=== PATIENT | female | born 1950 | race Caucasian/White ===

== ENCOUNTER 2016-11-02 05:22 | Inpatient (IN) | payer OTHER, MEDICARE ==
--- NOTE | 2016-10-31 15:52 | GHP ---
[f rep st] PREOP HISTORY AND PHYSICAL DATE OF ADMISSION: She will be an a.m. admission for surgery on Wednesday, November 02, 2016. PROBLEM LIST: 1. Right hip arthritis. 2. Insulin-dependent diabetes mellitus. HISTORY OF PRESENT ILLNESS: The patient is a 65-year-old woman admitted for a right total hip arthroplasty. She had been aware of progressive pain in her right hip for the past 6 years. She is having daily pain and night pain. Walking is painful. She has been limping. Her activities are limited. She has been using ibuprofen regularly. She has trouble putting on her shoes and socks on the right foot. She has tried extensive physical therapy. She has failed nonsurgical treatment and is admitted for a right total hip arthroplasty. PAST MEDICAL HISTORY: She had a spine fusion in 2005. She is treated for hypertension, insulin-dependent diabetes and depression. CURRENT MEDICATIONS: Amlodipine 10 mg per day. Atorvastatin 10 mg per day. Bupropion XL 150 mg per day. Fluoxetine 40 mg per day. Flonase for seasonal allergies. Lisinopril 20 mg/hydrochlorothiazide 25 mg p.o. daily for hypertension. There is no history of stents, hepatitis or DVT. She has sleep apnea and uses a CPAP machine. DRUG ALLERGIES: Penicillin causes anaphylaxis. Tetanus toxoid causes anaphylaxis. Morphine causes nausea. She is allergic to adhesive tape but she tolerates paper tape. PHYSICAL EXAMINATION: GENERAL: She is an alert, healthy-appearing woman, height 5 feet 6 inches, weight 260 pounds. BMI 40. HEENT: Eyes: She has had bilateral cataract surgery with lens implants. Mouth: Good oral hygiene. She has a few missing teeth. CHEST: Clear. HEART: Regular rhythm. No murmurs. EXTREMITIES: Pertinent findings limited to her right hip: She has full hip extension and 70 degrees of flexion. As she flexes the hip, she develops a 20- degree external rotation contracture and has no further internal or external rotation. Abduction 20 degrees. IMAGING: Her films show severe degenerative arthritis of her right hip. She is bone on bone. She has peripheral osteophytes and subchondral sclerosis. She is a few mm short on the right. IMPRESSION ON ADMISSION: 1. Right hip advanced degenerative arthritis. She is prepared for a right total hip arthroplasty. 2. Treatment for hypertension. 3. Treatment for elevated cholesterol. 4. Treatment for depression. 5. Obesity. She will undergo a right total hip arthroplasty. The surgery has been described to her, including the risks, complications, expectations, and recovery time. I have discussed with her the risk of dislocation and leg length inequality, as well as infection and sciatic nerve injury. Her insulin- dependent diabetes and obesity will increase her risk of infection. All her questions have been answered, and she consents to surgery. She wants to go to a detention facility following discharge from the hospital. Copy requested to: PATITO Acosta /[id number]/MODL MTDD
[2016-11-02] MEDS ORDERED: LIDOCAINE 1% 2 ML INJ ONE (05:45)
[2016-11-02] MEDS ORDERED: POVIDONE-IODINE 20 ML in SODIUM CL IRRIG SOLUTION 500 ML IRR ONE (06:00)
[2016-11-02] MEDS ORDERED: CHLORHEXIDINE GLUC HIBICLENS 118 ML BTL TP ONE (06:00)
[2016-11-02] MEDS ORDERED: ROPI/epiNEPH/KETOROLAC JOINT COCKTAIL IU ONE (06:00)
[2016-11-02] MEDS ORDERED: VANCOMYCIN 1.5 GM in D5W 250 ML IV ONE (06:00)
[2016-11-02] MEDS ORDERED: FAMOTIDINE 20 MG TAB PO ONE (06:00)
[2016-11-02] MEDS ORDERED: ACETAMINOPHEN 325 MG TAB PO ONE (06:00)
[2016-11-02] MEDS ORDERED: NS IV ONE (06:00)
[2016-11-02] MEDS ORDERED: DEXAMETHASONE 4 MG/ML VIAL IVP ONE (06:00)
[2016-11-02] MEDS ORDERED: TRANEXAMIC ACID IV ONE (06:00)
[2016-11-02] MEDS ORDERED: LR 1,000 ML IV ONE (06:20)
[2016-11-02] MEDS ORDERED: LIDOCAINE 1% 5 ML SDV ID PRN (06:20)
[2016-11-02] MEDS ORDERED: PROPOFOL 200 MG/20 ML VIAL ONE (06:23)
[2016-11-02] MEDS ORDERED: fentaNYL 100 MCG/2 ML INJ ONE ×3 (06:24→10:28)
[2016-11-02] MEDS ORDERED: ceFAZolin 1 GM/5 ML SYR ONE (06:45)
[2016-11-02] MEDS ORDERED: SCOPOLAMINE HYDROBROMIDE 1.5 MG PATCH TD ONE (07:00)
[2016-11-02] MEDS ORDERED: MIDAZOLAM 2 MG/2 ML VIAL ONE ×2 (07:05→07:50)
[2016-11-02] MEDS ORDERED: POLYMYXIN B SULFATE 500,000 UNIT/10 ML SYR IRR ONE (07:09)
[2016-11-02] MEDS ORDERED: PROPOFOL/EMULSION 500 MG/50 ML BOTTLE IV ONE (07:21)
[2016-11-02] MEDS ORDERED: TEMAZEPAM 15 MG CAP PO PRN (09:53)
[2016-11-02] MEDS ORDERED: MAGNESIUM HYDROXIDE 30 ML UDCUP PO PRN (09:53)
[2016-11-02] MEDS ORDERED: LACTULOSE 20 GM/30 ML UDCUP PO PRN (09:53)
[2016-11-02] MEDS ORDERED: ONDANSETRON DISINTEGRATING 4 MG TAB PO PRN (09:53)
[2016-11-02] MEDS ORDERED: POLYETHYLENE GLYCOL 3350 17 GM PKT PO PRN (09:53)
[2016-11-02] MEDS ORDERED: CYCLOBENZAPRINE 10 MG TAB PO PRN (09:53)
[2016-11-02] MEDS ORDERED: PROMETHAZINE HCL 25 MG SUPPR PR PRN (09:53)
[2016-11-02] MEDS ORDERED: diphenhydrAMINE 25 MG CAP PO PRN (09:53)
[2016-11-02] MEDS ORDERED: ONDANSETRON 4 MG/2 ML VIAL IVP PRN (09:53)
[2016-11-02] MEDS ORDERED: METOCLOPRAMIDE 10 MG/2 ML VIAL IVP PRN (09:53)
[2016-11-02] MEDS ORDERED: DIPHENOXYLATE/ATROPINE LOMOTIL 1 TAB PO PRN (09:53)
[2016-11-02] MEDS ORDERED: BISACODYL 10 MG SUPP PR PRN (09:53)
[2016-11-02] MEDS ORDERED: traMADol 50 MG TAB PO PRN (09:53)
[2016-11-02] MEDS ORDERED: PHARMACY PAIN CONSULT 1 EA MISC PRN (09:53)
--- NOTE | 2016-11-02 09:53 | POSTOPPROG ---
Post Op Note Date of Operation: 11/02/16 Surgeon: Gordon Humphreys Car Mover: Sandra/Veronica Anesthesia: GET(General Endotracheal), Spinal Post-op Diagnosis: right hip arthritis Procedure: R SUJIT Inf/Abcess present in the surg proc area at time of surgery?: No EBL: 100-500
[2016-11-02] MEDS ORDERED: LR 1,000 ML IV SCH (10:00)
[2016-11-02] MEDS ORDERED: INSULIN REGULAR HUMAN 100 UNIT/ML ONE (10:20)
[2016-11-02] MEDS ORDERED: MIDAZOLAM 2 MG/2 ML VIAL IVP PRN (10:25)
[2016-11-02] MEDS ORDERED: INSULIN REGULAR HUMAN 100 UNIT/ML SC ONE (10:30)
[2016-11-02] MEDS ORDERED: HYDROmorphONE/DILAUDID 1 MG/ML SYR ONE (10:43)
--- NOTE | 2016-11-02 11:17 | GOP ---
[f rep st] OPERATIVE REPORT DATE OF OPERATION: 11/02/2016 SURGEON: Gordon Humphreys MD [employer] DRIVER: Jaden Flores and Yolanda Martin. PREOPERATIVE DIAGNOSIS: Right hip severe degenerative arthritis. POSTOPERATIVE DIAGNOSIS: Right hip severe degenerative arthritis. PROCEDURE PERFORMED: A right total hip arthroplasty, ceramic femoral head on highly cross-linked polyethylene cup liner. FINDINGS: DESCRIPTION OF PROCEDURE: The patient was given 1 g of IV vancomycin preoperatively within 60 minutes of surgery. She also received IV tranexamic acid at a dose of 20 mg/kg. She was placed on the operating room table and Dr. Maria attempted a spinal anesthetic. She was then placed supine and given IV sedation. A Banda catheter was not used. She wore a DAINA stocking and SCD on the nonoperative leg. She was rolled to the left lateral decubitus position. The position was secured with the pegboard table attachment. An axillary roll was used and all pressure points were carefully padded. The patient's height was 5 feet 6 inches. Weight 260 pounds. BMI 40. Positioning was difficult because of her size. Her perineum was isolated with plastic adhesive drapes. The right hip and right lower I recognized that I may be over lengthening her a couple of millimeters; however I felt that the increased stability was more important. 40 mL of the joint anesthetic cocktail were injected into the capsule, the deep musculature, and the subcutaneous tissues along the skin edges. The joint was thoroughly irrigated 1 final time with a dilute Betadine solution. Her sciatic nerve was reinspected and looked unharmed. The external rotators and the posterior hip capsule were repaired in separate layers with #2 FiberWire sutures through drill holes in the greater trochanter. This provided a strong posterior capsular and external rotator repair. Her fascia julia was closed first with 2 interrupted #2 [id number] FiberWire sutures. This was followed by a running #2 barbed Ethicon Stratafix PDO suture. The subcutaneous tissues were closed with a running 0 barbed Ethicon Stratafix Monoderm suture. The skin was closed with a running 3-0 barbed /[id number]/MODL and [id number]/MODL, 11/02/16 1118 [facility]
[2016-11-02 13:32] LABS: CREATININE 1.6 mg/dL (0.6-1.0)
[2016-11-02] MEDS: ACETAMINOPHEN 325 MG TAB PO SCH ×3 (13:54→23:34)
[2016-11-02] MEDS: TRANEXAMIC ACID 650 MG TAB PO SCH ×3 (13:55→20:34)
[2016-11-02] MEDS ORDERED: FLUTICASONE NASAL 120 SPRAYS/16 GM MDI EACHNARE PRN (15:20)
--- NOTE | 2016-11-02 16:48 | GOP ---
[f rep st] OPERATIVE REPORT Corrected report DATE OF OPERATION: 11/02/2016 SURGEON: Gordon Humphreys MD ASSISTANTS: Jaden Flores and Yolanda Zabala. PREOPERATIVE DIAGNOSIS: Right hip severe degenerative arthritis. POSTOPERATIVE DIAGNOSIS: Right hip severe degenerative arthritis. OPERATION PERFORMED: Right total hip arthroplasty, ceramic femoral head on highly cross-linked polyethylene cup liner. ANESTHESIA: Attempted spinal anesthesia followed by general anesthesia by Dr. Dereck Maria. DESCRIPTION OF THE PROCEDURE: The patient was given 2 g of IV Ancef preoperatively within 60 minutes of surgery. She also received IV tranexamic acid at a dose of 20 mg/kg. She was placed on the operating room table and Dr. Maria attempted a spinal anesthetic with Marcaine. She was then placed supine and given IV sedation. A Banda catheter was not used. She wore a DAINA stocking and SCD on the nonoperative leg. She was rolled to the left lateral decubitus position. The position was secured with the pegboard table attachment. Her height is 5 feet 6 inches, her weight is 260 pounds and her BMI is 40. Her size and bulk made positioning difficult. An axillary roll was used and all pressure points were carefully padded. I did as best I could at locking her pelvis in a vertical position. Her perineum was isolated with plastic adhesive drapes. Her right hip and right lower extremity were prepped with ChloraPrep. They were draped free using sterile sheets, stockinette, and Ioban plastic drapes. The [employer] time-out was performed to verify the correct surgical side and the correct patient identity. The [place] time-out was also performed. I made an 8-9 inch straight oblique posterolateral hip skin incision. The subcutaneous tissues were sharply divided and hemostasis was obtained using electrocautery. She had a 3 inch deep layer of subcutaneous fat. Her fascia julia was identified and split along the axis of its fibers. I curved posteriorly and proximally, and split the fascia of the gluteus kinga and bluntly split the muscle fibers in line with their orientation. The deep Charnley self-retaining retractor was inserted. Because of the depth of her incision, I had to use the bariatric retractors. Her sciatic nerve was located , partially exposed and protected throughout the procedure. The external rotators and the posterior hip capsule were divided as separate layers at the base of the femoral neck, tagged and reflected posteriorly. A smooth 1/8-inch Steinmann pin was inserted vertically into the ilium superior to the acetabulum. An 1/8-inch drill bit was inserted vertically into the greater trochanter and parallel to the first pin. The distance between the 2 was measured for leg length reference. Her femoral head was dislocated posteriorly. Severe degenerative changes were present on her femoral head. Her femoral neck was osteotomized at the appropriate level and inclination. I was careful to preserve all the posterior capsule and most of the anterior capsule. The remnant of her damaged labrum was excised. I prepared the femur first. This allowed me to vice president of operations the amount of natural femoral neck anteversion. This, in turn, allowed me to later determine the correct amount of cup anteversion. She had approximately 10-12 degrees of natural femoral neck anteversion. Her canal was opened laterally with a box chisel. I reamed and broached sequentially up to a size 8 stem. I used a size 8 broach as a trial stem. I was careful to lateralize adequately. Appropriate retractors were inserted to expose the acetabulum. Her acetabulum was reamed sequentially up to 53 mm. I selected a 54 mm [place] Tritanium solid-backed hemispherical shell. This was tapped securely into place in the proper degree of inclination and anteversion. I used the transverse acetabular ligament and other acetabular bony landmarks to help me properly orient the cup. Fixation was very tight and I did not think supplemental screw fixation was necessary. I inserted a screw-in metal dome hole plug. I performed a series of trial reductions to determine length and stability. I concluded that the size 8 stem with a high offset with a 0 neck length and 36 mm head with a 10-degree lipped liner gave me the proper combination of appropriate length and good anterior and posterior stability. She was a few millimeters short preoperatively. I felt the high offset stem was indicated because it gave me greater stability. Because of the bulk of her thighs, as I adducted her flexed hip, it tended to lever the femoral head out posteriorly. The high offset neck gave me much greater stability. The 10-degree lipped Rita X3 highly cross-linked polyethylene liner was inserted and tapped securely into place. I chose the Rita Secur-Fit Max stem in a size 8 with high offset. This was inserted press-tit and was very tight. I did one final trial reduction and confirmed that the 0 neck length with 36 mm head was the proper combination. I selected the Rita Biolox Delta ceramic head with an outside diameter of 36 mm and a neck length of 0 mm. The head was tapped securely onto the clean trunnion. The acetabulum was irrigated, cleaned, and the hip was reduced one final time. She had excellent anterior and posterior stability and appropriate length. 40 mL of a joint anesthetic cocktail was injected into the capsule, the deep musculature and the subcutaneous tissues around the skin edges. The joint was thoroughly irrigated one final time with a dilute Betadine solution. Her sciatic nerve was reinspected and looked unharmed. The external rotators and the posterior hip capsule were repaired in separate layers with #2 FiberWire sutures through drill holes in the greater trochanter. This provided a strong posterior capsular and external rotator repair. The fascia julia was closed first with two #2 [id number] FiberWire sutures followed by a running #2 barbed Ethicon Stratafix PDO suture. The deep layer of subcutaneous tissues were closed first with multiple interrupted 2-0 Vicryl, Monocryl sutures followed by a running 0 barbed Ethicon Stratafix Monoderm suture. The skin was closed with a running 3-0 barbed Ethicon Stratafix Monoderm subcuticular suture. The skin edges were reapproximated and sealed with Dermabond glue. The wound was covered with a strip of Telfa and everything was held in place with a piece of clear plastic Tegaderm. A long-leg DAINA stocking and SCD were applied to her right lower extremity. She wore a stocking and SCD on the opposite leg during the procedure. An abduction pillow was placed between her knees. She was awakened from anesthesia and rolled to the supine position on her [facility]. She was taken to the PACU in satisfactory condition. There were no recognized intraoperative complications. The estimated blood loss was 400-500 mL. Because of the size of her incision and the difficulty in exposure, she had more than average blood loss. The sponge and needle count were correct on 2 occasions. I used a Rita Tritanium hemispherical solid-backed acetabular shell with an outside diameter of 54 mm. The liner was a [place] X3 10-degree lipped highly cross-linked liner with an inside diameter of 36 mm. The femoral component was a Press-Fit [place] high offset Secur-Fit Max stem in a size 8. The femoral head was a [place] Biolox Delta ceramic head with a 0 neck length and a 36 mm outside diameter. Jaden Flores and Yolanda Zabala acted as surgical assistants. Their assistance was a medical necessity. Copy requested to: MAX HORAN /[id number]/MODL Dawna WT, 11/03/16, scott MARIN
[2016-11-02] MEDS: INSULIN LISPRO 100 UNIT/ML SC SCH (17:34)
[2016-11-02] MEDS ORDERED: NON-FORMULARY NEW DRUG (Insulin Aspart [Novolog] 30 UNIT) SQ SCH (18:00)
[2016-11-02] MEDS: oxyCODONE IR 5 MG TAB PO PRN (20:30)
[2016-11-02] MEDS: ASPIRIN 325 MG TAB PO SCH (20:32)
[2016-11-02] MEDS: SENNOSIDES/DOCUSATE SODIUM TAB PO SCH (20:33)
[2016-11-02] MEDS: FAMOTIDINE 20 MG TAB PO SCH (20:33)
[2016-11-02] MEDS ORDERED: ATORVASTATIN CALCIUM 10 MG TAB PO SCH (21:00)
[2016-11-02] MEDS ORDERED: INSULIN NPH HUMAN 100 UNITS/ML SYRINGE SC SCH (21:00)
[2016-11-03] MEDS: TRANEXAMIC ACID 650 MG TAB PO SCH (03:46)
[2016-11-03 05:08] LABS: HEMATOCRIT 31.1 % (38.0-47.0); HEMOGLOBIN 10.4 g/dL (12.6-16.3)
[2016-11-03 05:28] LABS: ANION GAP 9 mEq/L (8-16); CALCIUM 8.1 mg/dL (8.5-10.4); CARBON DIOXIDE 20 mEq/l (22-31); CHLORIDE 110 mEq/L (97-110); CREATININE 2.1 mg/dL (0.6-1.0); GLOMERULAR FILTRATION RATE 23; GLUCOSE 160 mg/dL (70-100); POTASSIUM 4.5 mEq/L (3.5-5.2); SODIUM 139 mEq/L (134-144)
[2016-11-03] MEDS: ACETAMINOPHEN 325 MG TAB PO SCH ×2 (06:17→12:43)
--- NOTE | 2016-11-03 07:08 | SOAPPROG ---
SOAP Progress Note Assessment/Plan: Assessment: Awake and alert. Afebrile. She has stood at bedside several times. Moderate pain. On Oxycodone. Dsg is dry. H/H is low but acceptable. Bun/Cr are slightly up. Sciatic nerve intact. Films look good Plan: Up today with PT. To [facility] later today. 11/03/16 07:06 Objective: Vital Signs Temp Pulse Resp BP Pulse Ox 36.6 C 77 16 144/81 H 100 11/03/16 03:16 11/03/16 03:16 11/03/16 03:16 11/03/16 03:16 11/03/16 03:16 Laboratory Results 11/03/16 04:15 11/03/16 04:15 11/02/16 11/03/16 11/04/16 05:59 05:59 05:59 Intake Total 5289 Output Total 550 Balance 2749 ICD10 Worksheet Patient Problems: Problems Problem Status Onset Osteoarthritis of right hip Acute
--- NOTE | 2016-11-03 07:21 | PDIAF ---
- Diagnosis Diagnosis: right SUJIT Code Status: Full Code - Medication Management Discharge Medications: Medications to Continue on Transfer Atorvastatin Calcium [Lipitor 10 mg (*)] 10 mg PO HS 11/02/16 [Last Taken ] Cholecalciferol Vit D3 [Vitamin D3 (*)] 1,000 units PO DAILY 11/02/16 [Last Taken Unknown] FLUOXETINE HCL 40 mg PO DAILY 11/02/16 [Last Taken 11/01/16] Fluticasone Nasal [Flonase Nasal [place]] 1 spray EACHNARE BID PRN 11/02/16 [Last Taken 11/01/16] Insulin Aspart [novoLOG] 30 unit SQ TIDMEAL 11/02/16 [Last Taken 11/01/16] Insulin NPH Human [humULIN N 100 UNITS/ML (*)] 70 units SC HS 11/02/16 [Last Taken 11/01/16] amLODIPine BESYLATE [Amlodipine Besylate] 10 mg PO HS 11/02/16 [Last Taken 11/01] buPROPion XL [Wellbutrin 150mg XL] 150 mg PO DAILY 11/02/16 [Last Taken 11/02/16 ] Acetaminophen [Tylenol 325mg (*)] 650 mg PO Q6HRS #0 tab 11/03/16 [Last Taken Unknown] Aspirin [Aspirin 325 mg (*)] 325 mg PO DAILY #21 tab 11/03/16 [Last Taken Unknown] Ferrous Sulfate [Slow Fe 140 MG (*)] 140 mg PO DAILY #30 tab.er 11/03/16 [Last Taken Unknown] Ondansetron Odt [Zofran Odt 4 mg (*)] 4 mg PO Q4HRS PRN #15 tab 11/03/16 [Last Taken Unknown] oxyCODONE IR [Oxycodone Ir (*)] 5 - 10 mg PO Q3HRS PRN #30 tab 11/03/16 [Last Taken Unknown] traMADol [Ultram 50 mg (*)] 50 mg PO Q6HRS PRN #30 tab 11/03/16 [Last Taken Unknown] Discharge Medications: Refer to the Discharge Home Medication list for PRN reason. - Orders Diet Recommendation: ADA 1800 consistent carb Rohit Stockings Discontinue Date: one week. Wound Care Instructions: dsg is water proof. Activity/Weight Bearing Restrictions: 50% WB for 3 weeks. - Follow Up Care Current Providers and Referrals: MAX HORAN [Primary Care Provider] -
--- NOTE | 2016-11-03 07:50 | GDS ---
[f rep st] DISCHARGE SUMMARY ADMISSION DIAGNOSIS: Right hip severe degenerative arthritis. DISCHARGE DIAGNOSIS: Right hip severe degenerative arthritis. OPERATION PERFORMED: 11/02/2016, a right total hip arthroplasty, ceramic femoral head on highly crossing flagman sslinked polyethylene cup liner. POSTOPERATIVE COMPLICATIONS: None. CONDITION ON DISCHARGE: Improved. DESCRIPTION OF HOSPITAL COURSE: The patient was admitted to the hospital on the morning of surgery. Her admission BUN was 32, creatinine 1.32. Hemoglobin A1c was 7.5. Her white count was 10,600. The same day under attempted spinal anesthesia followed by general anesthesia she underwent a right total hip arthroplasty. Postoperatively, she was treated with multimodal DVT prophylaxis including aspirin. On the first postoperative day, her hemoglobin and hematocrit were 10.4 and 31.1. She did not require any transfused blood. Followup BUN and creatinine were 33 and 2.1. She was seen by [facility] for instruction in ambulation with a walker. Because of her size, I have asked her t o be 50% weightbearing for the first 3 weeks. By the time of discharge, she was afebrile, she was i ndependent and walking with a walker 50% weightbearing and her wound was clean and dry. DISPOSITION: The patient is discharged to [facility]. At this point, she will be 50% weightbear ing on the right for 3 weeks, use DAINA stockings for 1 week, use an abduction pillow in bed for 3 wee ks, continue aspirin 325 mg p.o. daily for 21 days, use iron daily for 30 days. I will see her back in the office on November 24, 2016. If there are any problems, she is to call me at the office. Copy requested to: Dr. Shruti Bowman [facility] /[id number]/MODL
[2016-11-03] MEDS ORDERED: buPROPion XL 150 MG TAB PO SCH (09:00)
[2016-11-03] MEDS ORDERED: FLUoxetine 20 MG CAP PO SCH (09:00)
[2016-11-03] MEDS ORDERED: CHOLECALCIFEROL VIT D3 1,000 UNITS TAB PO SCH (09:00)
[2016-11-03] MEDS ORDERED: FERROUS SULFATE 140 MG TAB.ER PO SCH (09:00)
[2016-11-03] MEDS: INSULIN LISPRO 100 UNIT/ML SC SCH ×2 (09:28→12:28)
[2016-11-03] MEDS: SENNOSIDES/DOCUSATE SODIUM TAB PO SCH (09:29)
[2016-11-03] MEDS: ASPIRIN 325 MG TAB PO SCH (09:31)
[2016-11-03] MEDS: FAMOTIDINE 20 MG TAB PO SCH (09:31)
[2016-11-03 11:53] VITALS: BP 133/60; PULSE 81; RESP 18; TEMP 98.8; O2SAT 96
[2016-11-03] MEDS: oxyCODONE IR 5 MG TAB PO PRN (12:43)
== END 2016-11-03 13:18 | DRG 470 ==
LOC: FSGY 05:22 → OBSVTOIN 05:23 → F3N 05:23
PROVIDERS: ADMIT Orthopaedic Surgery; ATTEND Orthopaedic Surgery
PROC: 0SR904Z Replacement of Right Hip Joint with Ceramic on Polyethylene Synthetic Substitute, Open Approach (ICD-10-PCS; principal; 2016-11-02 07:15)
DX: M16.11 Unilateral primary osteoarthritis, right hip (principal); E11.9 Type 2 diabetes mellitus without complications; Z79.4 Long term (current) use of insulin; I10 Essential (primary) hypertension; E78.00 Pure hypercholesterolemia, unspecified; F32.9 Major depressive disorder, single episode, unspecified; E66.9 Obesity, unspecified; G47.33 Obstructive sleep apnea (adult) (pediatric)
CPT/HCPCS: 97116-GP; 97162-GP; 97165-GO; G8978-GP-CK; G8979-GP-CJ; G8987-GO-CI; G8988-GO-CI; J0171; J1100; J1170; J1815; J1885; J2250; J2704; J2795; J3010; J3370

== ENCOUNTER 2017-12-20 11:06 | Day surgery (SDC) | payer OTHER, MEDICARE ==
--- NOTE | 2017-12-20 11:21 | EDPHY ---
H & P Stated Complaint: stomach staple 1991/thinks has food stuck at small intestine Time Seen by Provider: 12/20/17 11:21 HPI/ROS: CHIEF COMPLAINT: Food impaction HISTORY OF PRESENT ILLNESS: The patient presents to the ED with symptoms consistent with her prior history of intestinal food impaction. The patient does have a history of bariatric surgery in the s. Since that time she has developed 2 episodes of food impaction in the proximal small bowel requiring endoscopic evaluation. The patient reports she developed symptoms several days ago. This was initially accompanied with intractable vomiting. The vomiting has resolved however she is not had anything to eat or drink in 2 days. The patient denies fever, cough or congestion. She denies additional acute complaints. REVIEW OF SYSTEMS: A comprehensive 10 point review of systems is otherwise negative aside from elements mentioned in the history of present illness. Source: Patient - Personal History Current Tetanus Diphtheria and Acellular Pertussis (TDAP): No - Medical/Surgical History Hx Asthma: No Hx Chronic Respiratory Disease: No Hx Diabetes: Yes Hx Cardiac Disease: Yes Hx Renal Disease: Yes Hx Cirrhosis: No Hx Alcoholism: No Hx HIV/AIDS: No Hx Splenectomy or Spleen Trauma: No Other PMH: OA, HTN, diabetes, CPAP at night, depression, chronic renal insuff - Social History Smoking Status: Former smoker - Physical Exam Exam: General Appearance: Obese female, no acute distress Eyes: Pupils equal and round no pallor or injection ENT, Mouth: Mucous membranes moist Respiratory: There are no retractions, lungs are clear to auscultation Cardiovascular: Regular rate and rhythm Gastrointestinal: Abdomen is soft and nontender, no masses, bowel sounds normal Neurological: 5/5 strength all 4 extremities Skin: Warm and dry, no rashes Musculoskeletal: Neck is supple nontender Extremities: symmetrical, full range of motion Constitutional: Initial Vital Signs Temperature (C) 36.7 C 12/20/17 11:13 Heart Rate 94 12/20/17 11:13 Respiratory Rate 18 12/20/17 11:13 Blood Pressure 154/87 H 12/20/17 11:13 O2 Sat (%) 95 12/20/17 11:13 O2 Delivery Mode Room Air Allergies/Adverse Reactions: morphine Allergy (Verified 12/20/17 11:11) Vomiting Penicillins Allergy (Verified 12/20/17 11:11) Anaphylaxis Tetanus Vaccines and Toxoid Allergy (Verified 12/20/17 11:11) Anaphylaxis Home Medications: Medication Instructions Recorded Atorvastatin Calcium [Lipitor 10 10 mg PO HS 11/02/16 mg (*)] FLUOXETINE HCL 40 mg PO DAILY 11/02/16 Fluticasone Nasal [Flonase Nasal 1 spray EACHNARE BID PRN 11/02/16 [place]] Insulin Aspart [novoLOG] 30 unit SQ TIDMEAL 11/02/16 Insulin NPH Human [humULIN N 100 70 units SC HS 11/02/16 UNITS/ML (*)] amLODIPine BESYLATE [Amlodipine 10 mg PO HS 11/02/16 Besylate] buPROPion XL [Wellbutrin 150mg XL] 150 mg PO DAILY 11/02/16 Medical Decision Making ED Course/Re-evaluation: The patient clinically appears dehydrated. She had an IV established. She received 1 L of normal saline. Consultation was made with Dr. Adair from Gastroenterology who is making arrangements for the patient to go to endoscopy this afternoon. The patient is noted to have a chronically elevated creatinine of 1.6. Differential Diagnosis: Differential diagnosis considered includes esophageal foreign body, intestinal foreign body, acute renal failure, metabolic derangement, dehydration - Data Points Laboratory Results: Laboratory Results 12/20/17 11:35 12/20/17 11:35 12/20/17 12/20/17 11:35 11:35 WBC 14.70 10^3/uL H 10^3/uL (3.80-9.50) RBC 5.64 10^6/uL H 10^6/uL (4.18-5.33) Hgb 16.5 g/dL H g/dL (12.6-16.3) Hct 47.2 % H % (38.0-47.0) MCV 83.7 fL fL (81.5-99.8) MCH 29.3 pg pg (27.9-34.1) MCHC 35.0 g/dL g/dL (32.4-36.7) RDW 13.2 % % (11.5-15.2) Plt Count 293 10^3/uL 10^3/uL (150-400) MPV 9.4 fL fL (8.7-11.7) Neut % (Auto) 68.4 % % (39.3-74.2) Lymph % (Auto) 17.3 % % (15.0-45.0) [place] % (Auto) 10.0 % % (4.5-13.0) Eos % (Auto) 1.9 % % (0.6-7.6) Baso % (Auto) 0.4 % % (0.3-1.7) Nucleat RBC Rel Count 0.0 % % (0.0-0.2) Absolute Neuts (auto) 10.05 10^3/uL H 10^3/uL (1.70-6.50) Absolute Lymphs (auto) 2.54 10^3/uL 10^3/uL (1.00-3.00) Absolute Monos (auto) 1.47 10^3/uL H 10^3/uL (0.30-0.80) Absolute Eos (auto) 0.28 10^3/uL 10^3/uL (0.03-0.40) Absolute Basos (auto) 0.06 10^3/uL 10^3/uL (0.02-0.10) Absolute Nucleated RBC 0.00 10^3/uL 10^3/uL (0-0.01) Immature Gran % 2.0 % H % (0.0-1.1) Immature Gran # 0.30 10^3/uL H 10^3/uL (0.00-0.10) Sodium 137 mEq/L mEq/L (135-145) Potassium 4.0 mEq/L mEq/L (3.3-5.0) Chloride 98 mEq/L mEq/L (97-110) Carbon Dioxide 21 mEq/l L mEq/l (22-31) Anion Gap 18 mEq/L H mEq/L (8-16) BUN 41 mg/dL H mg/dL (7-23) Creatinine 1.6 mg/dL H mg/dL (0.6-1.0) Estimated GFR 32 Glucose 220 mg/dL H mg/dL (70-100) Calcium 11.8 mg/dL H mg/dL (8.5-10.4) Phosphorus Pending Medications Given: Discontinued Medications Sodium Chloride (Ns) 1,000 mls @ 0 mls/hr IV EDNOW ONE; Wide Open PRN Reason: Protocol Stop: 12/20/17 11:29 Last Admin: 12/20/17 11:38 Dose: 1,000 mls Departure - Departure Disposition: To OP Cath/Surgery Clinical Impression: Vomiting, Sensation of foreign body in esophagus Condition: Good Referrals: MAX HORAN [Primary Care Provider] - As per Instructions
[2017-12-20] MEDS ORDERED: NS 1,000 ML IV ONE (11:28)
[2017-12-20 11:47] LABS: PLATELET COUNT 293 10^3/uL (150-400)
--- NOTE | 2017-12-20 12:37 | PDGENHP ---
History & Physical Chief Complaint: Food impaction History of Present Illness: Prior mundo-en-y gastric bypass. Food impaction. Inability to eat or drink since event 2 days ago Pertinent Past, Social, Family History: HTN. DM. Obesity. OA. CKD. Sleep apnea Relevant Physical Exam: NAD. CTA B/L. RRR without m/r/g. GI: soft. NT/ND. NABS. No R/G Cardiorespiratory Assessment: EGD for removal of foreign body. ASA III. MAC
--- NOTE | 2017-12-20 12:48 | PDANEPAE ---
ANE History of Present Illness EGD for food impaction ANE Past Medical History - Cardiovascular History Hx Hypertension: Yes Hx Arrhythmias: No Hx Chest Pain: No Hx Coronary Artery / Peripheral Vascular Disease: No Hx CHF / Valvular Disease: No Hx Palpitations: No Cardiovascular History Comment: on Statin Rx - Pulmonary History Hx COPD: No Hx Asthma/Reactive Airway Disease: No Hx Recent Upper Respiratory Infection: No Hx Oxygen in Use at Home: No Hx Sleep Apnea: Yes Pulmonary History Comment: remote hx of pneumonia- gets vaccine Q 4 years. 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 (doctors unable to dx) - Endocrine History Hx Diabetes: Yes Endocrine History Comment: IDDM Type II - Renal History Hx Renal Disorders: No Renal History Comment: stage 3 kidney disease - Liver History Hx Hepatic Disorders: No - Neurological & Psychiatric Hx Hx Neurological and Psychiatric Disorders: Yes Neurological / Psychiatric History Comment: depression - Cancer History Hx Cancer: No - Congenital Disorder History Hx Congenital Disorders: No - GI History Hx Gastrointestinal Disorders: No Gastrointestinal History Comment: abd hernias - Other Health History Other Health History: bilat knees,R hip OA. allergies to hayfever,pollen - Surgical History Prior Surgeries: 3 T and A. 1973,1975 C section. 1985 Laparoscopy- adhesions. 1985 Explor Lap-lysis of adhesions,abdominoplasty. 1985 incisional hernia repair. 1985 2 additional hernia repair. 1987,1989 D and C. 1991 stomach stapling. 1991 hernia repair. 1992 incisional hernia repair. 2003 open pasha. 2005 L4/L5 fusion. 2013 discectomy -thoracic. 2013 C5/C6 fusion. 2016 bilat cataract extraction w/IOL. 2016 R carpal tunnel ANE Review of Systems Review of systems is: negative Review of Systems: ANE Patient History - Allergies Allergies/Adverse Reactions: morphine Allergy (Verified 12/20/17 11:11) Vomiting Penicillins Allergy (Verified 12/20/17 11:11) Anaphylaxis Tetanus Vaccines and Toxoid Allergy (Verified 12/20/17 11:11) Anaphylaxis - Home Medications Home medications: home medication list seen and reviewed Home Medications: Atorvastatin Calcium [Lipitor 10 mg (*)] 10 mg PO HS 11/02/16 [Last Taken ] FLUOXETINE HCL 40 mg PO DAILY 11/02/16 [Last Taken 1 Day Ago ~12/19/17] Fluticasone Nasal [Flonase Nasal [place]] 1 spray EACHNARE BID PRN 11/02/16 [Last Taken 1 Day Ago ~12/19/17] Insulin Aspart [novoLOG] 30 unit SQ TIDMEAL 11/02/16 [Last Taken 1 Day Ago ~] Insulin NPH Human [humULIN N 100 UNITS/ML (*)] 70 units SC HS 11/02/16 [Last Taken 1 Day Ago ~12/19/17] amLODIPine BESYLATE [Amlodipine Besylate] 10 mg PO HS 11/02/16 [Last Taken 1 Day Ago ~12/19/17] buPROPion XL [Wellbutrin 150mg XL] 150 mg PO DAILY 11/02/16 [Last Taken 1 Day Ago ~12/19/17] - NPO status NPO Since - Liquids (Date): 12/20/17 NPO Since - Liquids (Time): 10:00 NPO Since - Solids (Date): 12/16/17 NPO Since - Solids (Time): 16:30 - Anes Hx Anes Hx: no prior problems - Smoking Hx Smoking Status: Former smoker ANE Labs/Vital Signs - Labs Result Diagrams: 12/20/17 11:35 12/20/17 11:35 - Vital Signs Blood Pressure: 150/80 Heart Rate: 83 Respiratory Rate: 16 O2 Sat (%): 93 Height: 167.64 cm Weight: 117.934 kg ANE Physical Exam - Airway Neck exam: FROM Mallampati Score: Class 1 Mouth exam: normal dental/mouth exam - Pulmonary Pulmonary: no respiratory distress - Cardiovascular Cardiovascular: regular rate and rhythym - ASA Status ASA Status: III, E ANE Anesthesia Plan Anesthesia Plan: general endotracheal anesthesia Urgent/Emergent Case: Alexis alas completed preop but documented later for safe timely pt care
[2017-12-20] MEDS ORDERED: PROPOFOL 200 MG/20 ML VIAL ONE ×2 (13:06)
[2017-12-20] MEDS ORDERED: fentaNYL 100 MCG/2 ML INJ ONE (13:06)
[2017-12-20] MEDS ORDERED: LIDOCAINE 2% 5 ML SDV ONE (13:09)
[2017-12-20] MEDS ORDERED: SUCCINYLCHOLINE CHLORIDE 200 MG/10 ML SYR IVP ONE (13:14)
[2017-12-20] MEDS ORDERED: LABETALOL HCL 5 MG/ML 20 ML MDV ONE ×2 (13:21)
[2017-12-20] MEDS ORDERED: ePHEDrine SULFATE 25 MG/5 ML SYR ONE (13:31)
[2017-12-20] MEDS ORDERED: oxyCODONE IR 5 MG TAB PO PRN (13:32)
[2017-12-20] MEDS ORDERED: NALOXONE HCL 0.4 MG/ML INJ IVP PRN (13:32)
[2017-12-20] MEDS ORDERED: HYDROCODONE/APAP 5/325 TAB PO PRN (13:32)
[2017-12-20] MEDS ORDERED: ONDANSETRON 4 MG/2 ML VIAL IVP PRN (13:32)
[2017-12-20] MEDS ORDERED: LR 500 ML IV PRN (13:32)
[2017-12-20] MEDS ORDERED: HYDROmorphONE/DILAUDID 1 MG/ML INJ IVP PRN (13:32)
[2017-12-20] MEDS ORDERED: LABETALOL HCL 5 MG/ML 20 ML MDV IVP PRN (13:32)
[2017-12-20] MEDS ORDERED: ACETAMINOPHEN 500 MG TAB PO PRN (13:32)
[2017-12-20] MEDS ORDERED: ALBUTEROL 3 ML DEYVIAL IH PRN (13:32)
[2017-12-20] MEDS ORDERED: fentaNYL 100 MCG/2 ML INJ IVP PRN (13:32)
--- NOTE | 2017-12-20 13:32 | POSTANESTH ---
Post Anesthetic Evaluation Cardiovascular Status: Normal, Stable Respiratory Status: Normal, Stable Level of Consciousness/Mental Status: Can Participate in Eval, Mildly Sleepy, Arousable Pain Control: Adequate, Prn Tx Ordered Nausea/Vomiting Control: Adequate, Prn Tx Ordered Complications Possibly Related to Anesthesia: None Noted
--- NOTE | 2017-12-20 13:53 | GIREPORT ---
[facility] Surgical Services - Endoscopy Department Patient Name: Annia Carcamo Procedure Date: 12/20/2017 12:27 PM Patient Type: Emergency Department Attending MD/ ER Physician: Nicanor Adair MD Procedure: Upper GI endoscopy Indications: Epigastric abdominal pain, Dysphagia Providers: Nicanor Adair MD Medicines: General Anesthesia Complications: No immediate complications. Description of Procedure: After obtaining informed consent, the endoscope was passed under direct vision. Throughout the procedure, the patient's blood pressure, pulse, and oxygen saturations were monitored continuously. The Endoscope was intro duced through the mouth, and advanced to the third part of duodenum. The uppe r GI endoscopy was accomplished without difficulty. The patient tolerated th e procedure well. Findings: The esophagus was normal. Evidence of a stenosed vertical banded gastroplasty was found. A gastri c pouch 7 cm wide with a medium size was found containing food debris. Th e staple line appeared intact. Evidence of a Silastic band was not seen a nd appeared very tight. This was traversed. Biopsies were taken with a col d forceps for histology. A TTS dilator was passed through the scope. Dila tion with a 12-13.5-15 mm balloon dilator was performed to 15 mm. The examined duodenum was normal. Estimated Blood Loss: Estimated blood loss: none. Post Op Diagnosis: - Normal esophagus. - Stenosed vertical banded gastroplasty with a medium-sized pouch and i ntact staple line and band appears very tight. Biopsied. Dilated. - Normal examined duodenum. Recommendation: - Mechanical soft diet. - Repeat EGD as needed for repeat dilation of the gastroplasty. - Use Prilosec (omeprazole) 40 mg PO daily. - Discharge patient to home (ambulatory). Attending Participation: I personally performed the entire procedure without the assistance of a fellow, resident or surg ical business office assistant. Nicanor Adair MD Nicanor Adair MD 12/20/2017 1:52:55 PM This report has been signed electronicallyDavid MD Mana Number of Addenda: 0 Note Initiated On: 12/20/2017 12:27 PM [email or web address]
[2017-12-20 16:35] VITALS: BP 122/70
== END 2017-12-20 16:30 | disposition home or self-care (01) ==
LOC: FSGY 12:20
PROVIDERS: ATTEND Internal Medicine Gastroenterology
PROC: 0D768ZZ Dilation of Stomach, Via Natural or Artificial Opening Endoscopic (ICD-10-PCS; principal; 2017-12-20 13:00)
PROC: 0DB68Z3 Excision of Stomach, Via Natural or Artificial Opening Endoscopic, Vertical (ICD-10-PCS; principal; 2017-12-20 13:00)
DX: T85.858A Stenosis due to other internal prosthetic devices, implants and grafts, initial encounter (principal); Z98.84 Bariatric surgery status; R13.19 Other dysphagia; R10.13 Epigastric pain
CPT/HCPCS: 43239; 43245; 96360; 99285; C1726; J0330; J2704; J3010